=== PATIENT | female | born 1995 | race Two or more races ===

== ENCOUNTER 2021-02-16 16:42 | Emergency (ER) | payer MEDICAID, OTHER ==
[~2021-02-16] VITALS: Ht 170.2 cm; Wt 84.4 kg
[2021-02-16 16:44] VITALS: BP 165/99
== END 2021-02-16 23:52 | disposition left against medical advice (07) ==
LOC: ER 16:42
DX: M79.10 Myalgia, unspecified site (principal); Z53.21 Procedure and treatment not carried out due to patient leaving prior to being seen by health care provider

== ENCOUNTER 2024-04-20 22:51 | Emergency (ER) | payer MEDICAID, OTHER ==
[~2024-04-20] VITALS: Ht 170.2 cm; Wt 83.0 kg
[2024-04-20 23:13] VITALS: BP 149/95; PULSE 76; RESP 16; TEMP 98.7; O2SAT 98
[2024-04-21] MEDS ORDERED: ERY05OO OP (00:14)
--- NOTE | 2024-04-21 00:15 | ED.PDOC ---
Eye-HPI HPI Comments 28-YEAR-OLD FEMALE PRESENTS TO THE ED CHIEF COMPLAINT EYE SWELLING LEFT UPPER L ID SWELLING X2 WEEKS, TODAY LOWER LID IS SWOLLEN. DENIES VISION CHANGES Chief Complaint: Eye Problem Time Seen by MD: 23:20 Primary Care Provider: ABEBE Reviewed Notes: Nurses Notes, Medications, Allergies Allergies: Coded Allergies: Acetaminophen (Verified Allergy, Mild, 02/16/21) Hydrocodone (Verified Allergy, Mild, 02/16/21) Home Meds Active Scripts Erythromycin (Erythromycin) 5 Mg/Gm Oin, 1 MG OP QID for 7 Days, #3.5 GRAMS Apply 1 cm ribbon in left eye times daily x7 days Prov:SHANTA LITTLEJOHN OFFICE RN 04/21/24 Information Source: Patient Mode of Arrival: Ambulatory Constitutional: denies: chills, diaphoresis, fatigue, fever, malaise, sweats, weakness, others EENTM: reports: eye redness; denies: blurred vision, double vision, ear bleeding, ear discharge, ear drainage, ear pain, ear ringing, eye pain, hearing loss, mouth pain, mouth swelling, nasal discharge, nose bleeding, nose congest ion, nose pain, photophobia, tearing, throat pain, throat swelling, voice changes, others Respiratory: denies: cough, hemoptysis, orthopnea, SOB at rest, shortness of breath, SOB with excertion, stridor, wheezing, others Cardiovascular: denies: chest pain, dizzy spells, diaphoresis, Dyspnea on exertion, edema, irregular heart beat, left arm pain, lightheadedness, palpitations, PND, syncope, others Gastrointestinal: denies: abdomen distended, abdominal pain, blood streaked bowels, constipated, diarrhea, dysphagia, difficulty swallowing, hematemesis, melena, nausea, poor appetite, poor fluid intake, rectal bleeding, rectal pain, vomiting, others Genitourinary: denies: abnormal vagina bleeding, burning, dyspareunia, dysuria, flank pain, frequency, hematuria, incontinence, pain, , vagina disch arge, urgency, others Neurological: denies: dizziness, fainting, headache, left sided numbness, left sided weakness, numbness, paresthesia, pre-existing deficit, right sided numbness, right sided weakness, seizure, speech problems, tingling, tremors, weakness, others Musculoskeletal: denies: back pain, gout, joint pain, joint swelling, muscle pain, muscle stiffness, neck pain, others Integumetry: denies: bruises, change in color, change in hair/nails, dryness, laceration, lesions, lumps, rash, wounds, others Allergic/Immunocompromised: denies: Difficulty Healing, Frequent Infections, Hives, Itching, others Hematologic/Lymphatic: denies: anemia, blood clots, easy bleeding, easy bruising, swollen glands, others Endocrine: denies: excessive hunger, excessive sweating, excessive thirst, excessive urination, flushing, intolerance to cold, intolerance to heat, unexplained weight gain, unexplained weight loss, others Psychiatric: denies: anxiety, bipolar disorder, depression, hopeless, panic disorder, schizophrenia, sleepless, suicidal, others Physical Exam General Appearance: No Apparent Distress, Normal HEENT: Pharynx Normal, TMs Normal, Other (UPPER AND LOWER LID EDEMA WITH ERYTHEMA NO NOTED DRAINAGE) Neck: Full Range of Motion, Non-Tender, Normal, Normal Inspection Respiratory: Chest Non-Tender, Lungs Clear, No Accessory Muscle Use, No Respiratory Distress, Normal Breath Sounds Cardiovascular: No Edema, No JVD, No Murmur, No Gallop, Normal Peripheral Pulses, Regular Rate/Rhythm Breast Exam: Deferred Gastrointestinal: No Organomegaly, Non Tender, No Pulsatile Mass, Normal Bowel Sounds, Soft Genitalia: Deferred Pelvic: Deferred Rectal: Deferred Extremities: No calf tenderness, Normal capillary refill, Normal inspection, Normal range of motion, Non-tender, No pedal edema Musculoskeletal : Apperance: Normal Neurologic: Alert, breastfeeding educator II-XII nml as Tested, No Motor Deficits, Normal Affect, Normal Mood, No Sensory Deficits Cerebellar Function: Normal Reflexes: Normal Skin: Dry, Normal Color, Warm Lymphatic: No Adenopathy Was a procedure done? Was a procedure done?: No EENT DIFF Eye: Chalazion, Allergic, Bacterial, Viral X-Ray, Labs, Meds, VS Vital Signs Date Time Temp Pulse Resp B/P (MAP) Pulse Ox O2 Delivery O2 Flow Rate FiO2 04/20/24 23:13 98.7 76 16 149/95 (113) 98 X-Ray, Labs, Meds, VS Comment BACTERIAL SCRIPT ERYTHROMYCIN OINTMENT. FOLLOW-UP WITH PCP IN 1 TO 2 DAYS. TAKE MEDICATIONS PRESCRIBED. RETURN TO ED FOR ANY NEW OR WORSENING SYMPTOMS. Time of 1ST Reevaluation: 00:11 Reevaluation 1ST: Improved Patient Education/Counseling: Diagnosis, Treatment, Prognosis, Need For Follow Up Family Education/Counseling: No Family Present Departure 1 Departure Time of Disposition: 00:11 Impression: Primary Impression: Conjunctivitis Qualified Codes: H10.32 - Unspecified acute conjunctivitis, left eye Disposition: HOME / SELF CARE / HOMELESS Condition: Stable e-Prescriptions Erythromycin (Erythromycin) 5 Mg/Gm Oin 1 MG OP QID for 7 Days, #3.5 GRAMS Apply 1 cm ribbon in left eye times daily x7 days Prov: SHANTA LITTLEJOHN 04/21/24 Discharged With: Self Critical Care Note Critical Care Time?: No Stability Stability form required: SHANTA Chen Apr 21, 2024 00:15
[2024-04-21] MEDS: DexAMETHasone SOD PHOS 10MG/1ML VIAL INJ IM ONE (00:46)
== END 2024-04-21 00:57 | disposition home or self-care (01) ==
LOC: ER 22:51
DX: H10.32 Unspecified acute conjunctivitis, left eye (principal); Z88.6 Allergy status to analgesic agent; Z88.8 Allergy status to other drugs, medicaments and biological substances
CPT/HCPCS: 96372; 99283; J1100

== ENCOUNTER 2024-06-22 00:43 | Emergency (ER) | payer MEDICAID ==
[~2024-06-22] VITALS: Ht 170.2 cm; Wt 82.5 kg
--- NOTE | 2024-06-22 00:55 | ED.PDOC ---
Eye-HPI HPI Comments C/C of right jaw swelling since 06/21/24 at 1400. Pt states filling fell out, us ed Orajel OTC for pain, 08/14. VSS. Patient states she did follow up with dental and was told to take Tylenol for the abscess and schedule for root canal. Denies throat swelling neck swelling difficulty breathing shortness breath or chest pain reports no fever or chills. Time Seen by MD: 00:47 Primary Care Provider: ABEBE Reviewed Notes: Nurses Notes, Medications, Allergies Allergies: Coded Allergies: Acetaminophen (Verified Allergy, Mild, 02/16/21) Hydrocodone (Verified Allergy, Mild, 02/16/21) Home Meds Active Scripts Ibuprofen (Ibuprofen) 800 Mg Tab, 800 MG PO Q8HP PRN for 4 Days, #12 TAB Prov:SHANTA LITTLEJOHN 06/22/24 Amoxicillin & Pot Clavulanate (AUGMENTIN TABLET) 875 Mg Tb, 875 MG PO BID for 7 Days, #14 TAB Prov:SHANTA LITTLEJOHNP 06/22/24 Constitutional: denies: chills, diaphoresis, fatigue, fever, malaise, sweats, weakness, others EENTM: reports: others (Right Sided facial swelling and dental pain); denies: blurred vision, double vision, ear bleeding, ear discharge, ear drainage, ear pain, ear ringing, eye pain, eye redness, hearing loss, mouth pain, mouth swelling, nasal discharge, nose bleeding, nose congestion, nose pain, photophobia, tearing, throat pain, throat swelling, voice changes Respiratory: denies: cough, hemoptysis, orthopnea, SOB at rest, shortness of breath, SOB with excertion, stridor, wheezing, others Cardiovascular: denies: chest pain, dizzy spells, diaphoresis, Dyspnea on exertion, edema, irregular heart beat, left arm pain, lightheadedness, palpitations, PND, syncope, others Gastrointestinal: denies: abdomen distended, abdominal pain, blood streaked bowels, constipated, diarrhea, dysphagia, difficulty swallowing, hematemesis, melena, nausea, poor appetite, poor fluid intake, rectal bleeding, rectal pain, vomiting, others Genitourinary: denies: abnormal vagina bleeding, burning, dyspareunia, dysuria, flank pain, frequency, hematuria, incontinence, pain, , vagina discharge, urgency, others Neurological: denies: dizziness, fainting, headache, left sided numbness, left sided weakness, numbness, paresthesia, pre-existing deficit, right sided numbness, right sided weakness, seizure, speech problems, tingling, tremors, weakness, others Musculoskeletal: denies: back pain, gout, joint pain, joint swelling, muscle pain, muscle stiffness, neck pain, others Integumetry: denies: bruises, change in color, change in hair/nails, dryness, laceration, lesions, lumps, rash, wounds, others Allergic/Immunocompromised: denies: Difficulty Healing, Frequent Infections, Hives, Itching, others Hematologic/Lymphatic: denies: anemia, blood clots, easy bleeding, easy bruising, swollen glands, others Endocrine: denies: excessive hunger, excessive sweating, excessive thirst, excessive urination, flushing, intolerance to cold, intolerance to heat, unexplained weight gain, unexplained weight loss, others Psychiatric: denies: anxiety, bipolar disorder, depression, hopeless, panic disorder, schizophrenia, sleepless, suicidal, others Physical Exam General Appearance: No Apparent Distress, Normal HEENT: Pharynx Normal, TMs Normal, Other (Noted right-sided facial swelling without warmth mild tenderness. Right-sided lower jaw tooth number 46 with some decay noted missing filling no noted visual abscess or drainage) Neck: Full Range of Motion, Non-Tender, Normal, Normal Inspection Respiratory: Chest Non-Tender, Lungs Clear, No Accessory Muscle Use, No Re spiratory Distress, Normal Breath Sounds Cardiovascular: No Edema, No JVD, No Murmur, No Gallop, Normal Peripheral Pulses, Regular Rate/Rhythm Breast Exam: Deferred Gastrointestinal: No Organomegaly, Non Tender, No Pulsatile Mass, Normal Bowel Sounds, Soft Genitalia: Deferred Pelvic: Deferred Rectal: Deferred Extremities: No calf tenderness, Normal capillary refill, Normal inspection, Normal range of motion, Non-tender, No pedal edema Musculoskeletal : Apperance: Normal Neurologic: Alert, energy attorney II-XII nml as Tested, No Motor Deficits, Normal Affect, Normal Mood, No Sensory Deficits Cerebellar Function: Normal Reflexes: Normal Skin: Dry, Normal Color, Warm Lymphatic: No Adenopathy Was a procedure done? Was a procedure done?: No EENT DIFF Eye: N/A Mouth: Herpangina, Herpes Simplex, Thrush Sore Throat: Andi's Angina X-Ray, Labs, Meds, VS Vital Signs Date Time Temp Pulse Resp B/P (MAP) Pulse Ox O2 Delivery O2 Flow Rate FiO2 06/22/24 01:25 76 17 98 Room Air 06/22/24 01:25 98.6 76 17 149/99 (116) 98 98.6 06/22/24 01:13 98.6 76 17 149/99 (116) 98 98.6 X-Ray, Labs, Meds, VS Comment Patient given Toradol 60 mg IM and Rocephin 1 g IM. Likely dental infection patient will need infection resolved prior to any dental work. Script Augmentin twice daily x7 days. Advised to take medications as prescribed side effects discussed. Also script ibuprofen 800 mg t.i.d. p.r.n. pain swelling. Advised to use warm face cloth to encourage drainage and resolution of the abscess along with the antibiotics. ER return precautions given patient indicates understanding agrees with discharge plan of care. Time of 1ST Reevaluation: 00:54 Reevaluation 1ST: Unchanged Time of 2ND Reevaluation: 01:54 Reevaluation 2ND: Improved Patient Education/Counseling: Diagnosis, Treatment, Prognosis, Need For Follow Up Family Education/Counseling: No Family Present Departure 1 Departure Time of Disposition: 01:54 Impression: Primary Impression: Dental infection Disposition: 01 HOME / SELF CARE / HOMELESS Condition: Stable e-Prescriptions Ibuprofen (Ibuprofen) 800 Mg Tab 800 MG PO Q8HP PRN for 4 Days, #12 TAB Prov: SHANTA LITTLEJOHN 06/22/24 Amoxicillin & Pot Clavulanate (AUGMENTIN TABLET) 875 Mg Tb 875 MG PO BID for 7 Days, #14 TAB Prov: SHANTA LITTLEJOHN 06/22/24 Discharged With: Self Critical Care Note Critical Care Time?: No Stability Stability form required: SHANTA Chen Jun 22, 2024 00:55
[2024-06-22 01:25] VITALS: BP 149/99; PULSE 76; RESP 17; TEMP 98.6; O2SAT 98
[2024-06-22] MEDS ORDERED: IBUP-1456 PO (01:32)
[2024-06-22] MEDS ORDERED: AUG875T PO (01:32)
[2024-06-22] MEDS: cefTRIAXone SOD 1,000 MG VL IM ONE (02:00)
[2024-06-22] MEDS: KETOROLAC TROMETH 60MG/2ML VIAL IM ONE (02:01)
== END 2024-06-22 02:25 | disposition home or self-care (01) ==
LOC: ER 00:43
DX: K04.7 Periapical abscess without sinus (principal); Z88.5 Allergy status to narcotic agent; Z88.1 Allergy status to other antibiotic agents
CPT/HCPCS: 96372; 99284; J0696; J1885